=== PATIENT | female | born 1990 | race Caucasian/White ===

== ENCOUNTER 2021-11-28 17:20 | Emergency (ER) | payer SELFPAY ==
[~2021-11-28] VITALS: Ht 154.9 cm; Wt 70.8 kg
[2021-11-28 17:27] VITALS: BP 112/67
--- NOTE | 2021-11-28 18:00 | NUR ---
pt asessed by arti chavis at this time in [place]
[2021-11-28] MEDS ORDERED: KETOROLAC 30 MG/ML VIAL IM ONE (18:05)
--- NOTE | 2021-11-28 18:09 | NUR ---
PT MOVED TO BED 07.
--- NOTE | 2021-11-28 18:32 | NUR ---
Patient was taken via wheelchair for X-Ray.
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
[2021-11-28] MEDS ORDERED: METH-1681 PO (19:09)
[2021-11-28] MEDS ORDERED: NAPR-54 PO (19:09)
--- NOTE | 2021-11-28 19:23 | NUR ---
Pt report given to NOAH Ruiz. Transfer of care at this time.
[2021-11-28 19:40] VITALS: BP 121/46
--- NOTE | 2021-11-28 19:40 | NUR ---
Patient discharged with v/s stable. Written and verbal after care instructions given and explained. Patient alert, oriented and verbalized understanding of instructions. Ambulatory with steady gait. All questions addressed prior to discharge. ID band removed. Patient advised to follow up with PMD. Rx of naproskoffi, and robaxin given. Opportunity to ask questions provided and answered.
--- NOTE | 2021-11-28 19:45 | NUR ---
The patient's care was reviewed and supervised by Pamela Vazquez RN.
== END 2021-11-28 19:40 | disposition home or self-care (01) ==
LOC: MED 17:20
DX: M54.2 Cervicalgia (principal); R07.89 Other chest pain; Z79.899 Other long term (current) drug therapy; Z79.1 Long term (current) use of non-steroidal anti-inflammatories (NSAID); V86.59XA Driver of other special all-terrain or other off-road motor vehicle injured in nontraffic accident, initial encounter; Y92.89 Other specified places as the place of occurrence of the external cause; Y93.89 Activity, other specified; Y99.8 Other external cause status
CPT/HCPCS: 71045; 72050; 81025; 96372; 99284; J1885

== ENCOUNTER 2022-12-26 00:34 | Emergency (ER) | payer MEDICAID ==
[~2022-12-26] VITALS: Ht 154.9 cm; Wt 72.6 kg
[~2022-12-26 00:34] MED LIST: METH-1681 PO; NAPR-54 PO
[2022-12-26 00:43] VITALS: BP 122/74
[2022-12-26 01:29] LABS: APPEARANCE,URINE CLOUDY (CLEAR); BILIRUBIN,URINE NEGATIVE (NEGATIVE); BLOOD, URINE 1+ (NEGATIVE); COLOR,URINE YELLOW (YELLOW); LEUKOCYTE ESTERASE ,URINE NEGATIVE (NEGATIVE); NITRITE, URINE NEGATIVE (NEGATIVE); UGLUCOSE NEGATIVE (NEGATIVE)
--- NOTE | 2022-12-26 01:30 | NUR ---
Urine collected and sent to lab
[2022-12-26 01:41] LABS: RBC,URINE 11-20 (MOD) /HPF (0-5); WBC,URINE 0-5 /HPF (0-5)
[2022-12-26] MEDS ORDERED: PHEN-1877 PO (01:59)
[2022-12-26] MEDS ORDERED: IBUP-2213 PO (01:59)
[2022-12-26] MEDS ORDERED: KETOROLAC 30 MG/ML VIAL IM ONE (02:00)
--- NOTE | 2022-12-26 02:12 | NUR ---
Patient discharged with v/s stable. Written and verbal after care instructions given and explained. New rx ibuprofen and pyridium. Patient verbalized understanding. Ambulatory with steady gait. All questions addressed prior to discharge. Advised to follow up with PMD.
[2022-12-26 02:13] VITALS: BP 122/74
[2022-12-26] MEDS ORDERED: DOXY-690 PO (19:03)
--- NOTE | 2022-12-26 19:09 | NUR ---
LATE ENTRY. RECEIVED +CHLAMYDIA RESULT. FORM GIVEN TO DR JACKSON. SPOKE WITH PT AND SENT RX OF DOXY TO [facility]. FORM GIVEN TO INFECTION CONTROL AND PLACED IN [facility]
== END 2022-12-26 02:12 | disposition home or self-care (01) ==
LOC: MED 00:34
DX: R30.0 Dysuria (principal); R10.30 Lower abdominal pain, unspecified; Z79.899 Other long term (current) drug therapy
CPT/HCPCS: 81001; 81025; 87086; 87491; 96372; 99283; J1885